=== PATIENT | male | born 1955 | race Caucasian/White ===

== ENCOUNTER 2022-05-12 17:50 | Emergency (ER) | payer MEDICARE, OTHER, SELFPAY ==
--- NOTE | ~2022-05-12 | XR_ITS ---
EXAMINATION: XR lumbar spine 2-3V DATE: 05/12/2022 22:03 INDICATION: Right sacroiliac joint tenderness. TECHNIQUE: 3 views of lumbar spine were obtained. COMPARISON: None. FINDINGS: Bone alignment is normal. Vertebral body heights are normal. There is moderately decreased disc height at L4-L5 and L5-S1. There is moderate facet joint osteoarthritis in lower lumbar spine. IMPRESSION: 1. Moderate lower lumbar spondylosis. Reviewed, dictated and finalized at location A. SITION OPERATOR
--- NOTE | ~2022-05-12 | XR_ITS ---
EXAM: XR hip RT 2V w AP pelvis DATE: 05/12/2022 20:09 HISTORY: Posterior right hip pain after digging crawl space x 5 days . COMPARISON: None available. FINDINGS: Normal mineralization. No fracture or dislocation. No lytic or blastic lesion. Well ossifi ed excrescence off the right anterior superior iliac spine, likely representing a benign exostosis or osteochondroma. Pelvic and hip enthesopathy. Mild bilateral hip osteoarthritis. No erosion or perios teal change. Pelvic phleboliths. Atherosclerotic vascular calcification. IMPRESSION: No acute osseous finding in the pelvis. Reviewed, dictated and finalized at location K. ON CHOPPER
--- NOTE | ~2022-05-12 | XR_ITS ---
EXAM: XR shoulder RT min 2V DATE: 05/12/2022 20:09 HISTORY: RIGHT SCAPULAR PAIN X 5 DAYS AFTER DIGGING IN CRAWL SPACE . COMPARISON: None available. FINDINGS: Decreased mineralization. No fracture or dislocation. No lytic or blastic lesion. Moderate cardiomegaly clavicular and mild glenohumeral osteoarthritic changes. Minimal rotator cuff calcific tendinitis. No erosion or periosteal change. Soft tissues within normal limits. Calcified right lung granuloma. IMPRESSION: No acute osseous finding in the right shoulder. Reviewed, dictated and finalized at location K. LE PROCESSING MACHINE OPERATOR
[2022-05-12 17:59] VITALS: BP 146/52; PULSE 99; RESP 20; TEMP 36.9
[2022-05-12 20:36] VITALS: BP 138/59; PULSE 85; RESP 18; O2SAT 96
--- NOTE | 2022-05-12 21:38 | ED.EXTPRO ---
HPI - Extremity Problem General Chief complaint: Extremity Problem,Nontraumatic Stated complaint: R HIP/BACK/SHOULDER PAIN WORKING IN CRAWL SPACE Time Seen by Provider: 05/12/22 19:43 Source: patient Mode of arrival: ambulatory Limitations: no limitations History of Present Illness HPI Narrative: Patient is a 67-year-old male who presents to the ED with report of right hip/low back pain and right upper back/shoulder pain. Patient reports he was working in a crawl space and digging with a shovel on Friday and Friday last week. He began having pain at his right lower back/right hip region as well as his right scapular region a few days later. The pain has been persistent. Worse with certain activities, certain positions. He has been taking [place] at home with minimal relief. Denies any chest pain, difficulty breathing, saddle anesthesia, weakness of lower extremities, abdominal pain, nausea, vomiting, incontinence of bowel or bladder. Related Data Allergies Allergy/AdvReac Type Severity Reaction Status Date / Time No Known Allergies Allergy Unverified 01/03/20 13:45 Review of Systems Review of Systems: CONSTITUTIONAL: Denies fever, chills, or sweats. CARDIOVASCULAR: Denies chest pain. RESPIRATORY: Denies dyspnea. GASTROINTESTINAL: Denies abdominal pain, incontinence, nausea, vomiting, or diarrhea. GENITOURINARY: Denies incontinence, dysuria or hematuria. SKIN: Denies rash or itching. MUSCULOSKELETAL: Reports R lower back/hip pain, R upper back/shoulder pain. NEUROLOGIC: Denies tingling, numbness, or weakness. All systems reviewed & are unremarkable except as noted in HPI and below PMFSH Past Medical History Medical History Benign hypertension Diabetes mellitus Mixed hyperlipidemia Surgical History Surgical History (Updated 05/12/22 @ 21:42 by Yesenia Chavis PA-C) History of laminectomy Social History Social History (Updated 05/12/22 @ 21:42 by Yesenia Chavis PA-C) Smoking status: Never smoker Exam Narrative: GENERAL: Well appearing, obese, non-toxic, in no acute distress. HEAD: Normocephalic, atraumatic. NECK: Supple. No adenopathy, no masses. No midline spinal tenderness. RESPIRATORY: Airway patent, respirations nonlabored. Clear to auscultation bilaterally, no rales, rhonchi, wheezing. CARDIOVASCULAR: Regular rate and rhythm without murmurs, rubs, or gallops. Peripheral pulses 2+ and equal bilaterally. ABDOMINAL: Soft, nontender, nondistended, no hepatosplenomegaly. Normoactive BS. MUSCULOSKELETAL: Mild limited ROM of RLE due to pain. Patient moving slow. No significant limitation of R shoulder ROM. No midline thoracic or lumbar spinal tenderness. Point tenderness over right SI joint with reproduction of pain. Positive straight leg raise on R. Mild tenderness over medial lower right scapular region, region of lower trapezius muscle. SKIN: Warm, dry, normal color. No rashes. NEURO: A&O X3. Speech clear. Cranial nerves II-XII grossly intact. Steady gait. No ataxic movements. Strength 5/5 in upper and lower extremities bilaterally. PSYCHIATRIC: Appropriate mood and affect. Normal interaction. Course Vital Signs Vital signs: Vital Signs Temperature 98.4 F 05/12/22 17:59 Pulse Rate 99 05/12/22 17:59 Respiratory Rate 20 05/12/22 17:59 Blood Pressure 146/52 H 05/12/22 17:59 Temperature 98.4 F 05/12/22 17:59 Pulse Rate 85 05/12/22 20:36 Respiratory Rate 18 05/12/22 20:36 Blood Pressure 138/59 L 05/12/22 20:36 Pulse Oximetry 96 05/12/22 20:36 MDM - Extremity (Nontraumatic) MDM Narrative Medical decision making narrative: Patient's pain is positional and localized to paraspinal muscles without signs of cord compression or cauda equina. Identifiable triggering activity. Normal neurologic exams. No red flag symptoms. No fever noted and no significant risk factors for osteomyelitis or spinal epidural
[2022-05-12] MEDS: diazePAM INJ (*CRX) 10 MG/2 ML SYRINGE 2 MG IM (22:26)
[2022-05-12] MEDS: KETOROLAC 30 MG/ML VIAL (*BKC) IM (22:26)
== END 2022-05-12 23:39 | disposition home or self-care (01) ==
PROVIDERS: Emergency Provider Physician Assistant; PCP Physician Assistant Medical
DX: S39.012A Strain of muscle, fascia and tendon of lower back, initial encounter (principal); S33.5XXA Sprain of ligaments of lumbar spine, initial encounter; M54.6 Pain in thoracic spine; I10 Essential (primary) hypertension; E11.9 Type 2 diabetes mellitus without complications; E78.2 Mixed hyperlipidemia; X50.9XXA Other and unspecified overexertion or strenuous movements or postures, initial encounter
CPT/HCPCS: 72100; 73030; 73502; 96372; 99284; J1885; J3360